=== PATIENT | male | born 1955 | race Caucasian/White ===

== ENCOUNTER 2018-05-14 05:39 | Observation (INO) | payer BC ==
--- NOTE | 2018-05-13 16:17 | GHP ---
DATE OF ADMISSION: 05/14/2018 ADMISSION DIAGNOSIS: BPH with urinary obstruction. This is a 62-year-old gentleman who had BPH in the past treated with GreenLight laser photovaporizati on. After assessment, it is noted that he had BPH regrowth, and we recommend he undergo a TURP. He is admitted for the above procedure. He has also had hypogonadism with a prolactinoma and been refer red to Endocrinology for evaluation and treatment of that. At the present time, he is admitted for t he TURP. Indication, complications, and expectations discussed. PAST SURGERY: He has had photovaporization of the prostate, knee surgery, vasectomy, and vasovasosto my. MEDICATIONS: Aspirin, diltiazem, statin drug, Zyrtec. ALLERGIES: None. PHYSICAL EXAMINATION: VITAL SIGNS: Stable. CHEST: Clear. HEART: Regular rate and rhythm. ABDOM EN: Normal. No organomegaly, rebound, or guarding. LOWER EXTREMITIES: Normal. LAB FINDINGS: He has had a PSA value in June 2017. It was 1.8. A testosterone in November of 2017 of 176. He has had significant nocturia with hesitancy and obstruction. He has also had sleep apnea that has been addressed in the past. ASSESSMENT AND PLAN: At the present time, he is admitted for a transurethral resection of the prosta te. Indication, complications, and risks discussed. Copy requested to: Dr. Todd Dalton /[id number]/MODL
[2018-05-14] MEDS ORDERED: ceFAZolin 2 GM/DEXTROSE 100 ML IV ONE (06:00)
[2018-05-14] MEDS ORDERED: LR 1,000 ML IV ONE (06:00)
[2018-05-14] MEDS ORDERED: LIDOCAINE 2% JELLY 20 ML (UROJECT) ONE (06:55)
--- NOTE | 2018-05-14 07:03 | PDHPUP ---
History & Physical Update H&P update statement: This history and physical update is based on an assessment of the patient which was completed after admission or registration (within 24 hours), but prior to the surgery/procedure. H&P update: H&P reviewed & patient examined, no change in patient's condition since H&P completed
[2018-05-14] MEDS ORDERED: MIDAZOLAM 2 MG/2 ML VIAL IVP ONE (07:10)
--- NOTE | 2018-05-14 07:13 | PDANEPAE ---
ANE History of Present Illness TURP ANE Past Medical History - Cardiovascular History Hx Hypertension: No Hx Arrhythmias: No Hx Chest Pain: No Hx Coronary Artery / Peripheral Vascular Disease: No Hx CHF / Valvular Disease: No Hx Palpitations: No Cardiovascular History Comment: pre-htn - Pulmonary History Hx COPD: No Hx Asthma/Reactive Airway Disease: No Hx Recent Upper Respiratory Infection: No Hx Oxygen in Use at Home: No Hx Sleep Apnea: Yes Sleep Apnea Screening Result - Last Documented: Positive Pulmonary History Comment: SEASONAL HAY FEVER - Neurologic History Hx Cerebrovascular Accident: No Hx Seizures: No Hx Dementia: No - Endocrine History Hx Diabetes: No - Renal History Hx Renal Disorders: No Renal History Comment: PROSTATE - Liver History Hx Hepatic Disorders: No - Neurological & Psychiatric Hx Hx Neurological and Psychiatric Disorders: No - Cancer History Hx Cancer: No - Congenital Disorder History Hx Congenital Disorders: No - GI History Hx Gastrointestinal Disorders: No - Other Health History Other Health History: KERATOSIS - Chronic Pain History Chronic Pain: No - Surgical History Prior Surgeries: 2013 PHOTOVAPORIZATION PROSTATE. ACL REPAIR L KNEE ANE Review of Systems Review of Systems: - Exercise capacity METS (RN): 4 METS ANE Patient History - Allergies Allergies/Adverse Reactions: No Known Allergies Allergy (Verified 04/22/18 16:00) - Home Medications Home Medications: Aspirin EC [Aspirin EC 81 mg (*)] 81 mg PO EVERY OTHER DAY 04/22/18 [Last Taken 1 Week Ago ~05/07/18] Cetirizine [ZyrTEC 10 mg (*)] 10 mg PO DAILY 04/22/18 [Last Taken 05/14/18 04:00 ] Cholecalciferol Vit D3 [Vitamin D3 (*)] 2,000 units PO HS 04/22/18 [Last Taken 1 Week Ago ~05/07/18] Diltiazem Xr [Dilacor Xr 180 MG (RX)] 180 mg PO HS 04/22/18 [Last Taken 23:00] Losartan Potassium [Cozaar 50 mg (*)] 100 mg PO DAILY 04/22/18 [Last Taken 05/13 23:00] Ibuprofen [Motrin (*)] 600 mg PO 05/14/18 [Last Taken 05/09/18] - NPO status NPO Status: no food or drink >8 hours NPO Since - Liquids (Date): 05/14/18 NPO Since - Liquids (Time): 04:00 NPO Since - Solids (Date): 05/13/18 NPO Since - Solids (Time): 22:00 - Smoking Hx Smoking Status: Never smoked - Family Anes Hx Family Hx Anesthesia Complications: none ANE Labs/Vital Signs - Vital Signs Blood Pressure: 137/88 Heart Rate: 68 Respiratory Rate: 14 O2 Sat (%): 91 Height: 182.88 cm Weight: 99.79 kg ANE Physical Exam - Airway Neck exam: decreased ROM Mallampati Score: Class 2 - Pulmonary Pulmonary: no respiratory distress, no rales or rhonchi - Cardiovascular Cardiovascular: regular rate and rhythym, no murmur, rub, or gallop - ASA Status ASA Status: II ANE Anesthesia Plan Anesthesia Plan: general endotracheal anesthesia
[2018-05-14] MEDS ORDERED: MIDAZOLAM 2 MG/2 ML VIAL ONE (07:14)
[2018-05-14] MEDS ORDERED: fentaNYL 250 MCG/5 ML INJ ONE (07:16)
[2018-05-14] MEDS ORDERED: PROPOFOL 200 MG/20 ML VIAL ONE (07:16)
[2018-05-14] MEDS ORDERED: PROPOFOL/EMULSION 500 MG/50 ML BOTTLE IV ONE (07:16)
[2018-05-14] MEDS ORDERED: DEXAMETHASONE 4 MG/ML VIAL ONE (07:25)
[2018-05-14] MEDS ORDERED: ONDANSETRON 4 MG/2 ML VIAL ONE (07:26)
[2018-05-14] MEDS ORDERED: ACETAMINOPHEN 325 MG TAB PO PRN (08:39)
[2018-05-14] MEDS ORDERED: ONDANSETRON DISINTEGRATING 4 MG TAB PO PRN (08:39)
[2018-05-14] MEDS ORDERED: ONDANSETRON 4 MG/2 ML VIAL IVP PRN ×2 (08:39→08:47)
[2018-05-14] MEDS ORDERED: OPIUM/BELLADONNA ALKALO SUPP PR PRN (08:39)
[2018-05-14] MEDS ORDERED: ZOLPIDEM TARTRATE 5 MG TAB PO PRN (08:39)
[2018-05-14] MEDS ORDERED: OXYCODONE/APAP 5/325 TAB PO PRN (08:39)
--- NOTE | 2018-05-14 08:39 | POSTOPPROG ---
Post Op Note Date of Operation: 05/14/18 (dictated) Surgeon: Ryan Cabrera Anesthesiologist: Manjeet Anesthesia: LMA Pre-op Diagnosis: bph Procedure: turp Inf/Abcess present in the surg proc area at time of surgery?: No EBL: Minimal Drains: Other (catheter) Specimen(s): sent
[2018-05-14] MEDS ORDERED: IBUPROFEN 600 MG TAB PO PRN (08:41)
[2018-05-14] MEDS ORDERED: D5W 1/2 NS 1,000 ML IV SCH (08:45)
[2018-05-14] MEDS ORDERED: ACETAMINOPHEN 500 MG TAB PO PRN (08:47)
[2018-05-14] MEDS ORDERED: HYDROCODONE/APAP 5/325 TAB PO PRN (08:47)
[2018-05-14] MEDS ORDERED: fentaNYL 100 MCG/2 ML INJ IVP PRN (08:47)
[2018-05-14] MEDS ORDERED: ALBUTEROL 3 ML DEYVIAL IH PRN (08:47)
[2018-05-14] MEDS ORDERED: NALOXONE HCL 0.4 MG/ML INJ IVP PRN (08:47)
[2018-05-14] MEDS ORDERED: HYDROmorphONE/DILAUDID 2 MG/ML INJ IVP PRN (08:47)
[2018-05-14] MEDS ORDERED: oxyCODONE IR 5 MG TAB PO PRN (08:47)
--- NOTE | 2018-05-14 08:57 | GOP ---
DATE OF OPERATION: 05/14/2018 SURGEON: Ryan Cabrera MD ANESTHESIA: General anesthesia. ANESTHESIOLOGIST: Dr. Burroughs. PREOPERATIVE DIAGNOSIS: BPH with urinary obstruction. POSTOPERATIVE DIAGNOSIS: BPH with urinary obstruction. PROCEDURE PERFORMED: Transurethral resection of the prostate. FINDINGS: DESCRIPTION OF PROCEDURE: Preoperatively discussed the indications, complications associated with maria teresa is. Also discussed was related to his prolactinoma, which he has had diagnosed. We had discussed maria teresa is with Dr. Abel Carrera from Neurosurgery who would recommend he have Endocrinology consult prior to a ny potential surgical consult and Endocrinology consult is scheduled in the future for treatment of sylvia carias 1 cm prolactinoma. Related to the BPH, after undergoing general anesthesia and being prepped and draped in normal steril e fashion, appropriate time-out, his meatus was dilated to 26-Pakistani, and at that point, the resectos cope was passed into the bladder atraumatically. The bladder had no tumor stones, foreign bodies, or diverticula. The ureteral orifices were normal and he had regrowth of the left side of the prostate that was coming across and occluding the channels. At that point, the intravesical lobe in the left lateral lobe resected. Right lateral lobe resected. Apical part of the prostate was managed and th e verumontanum preserved. At the end of the procedure. After resecting all the regrowth adenoma and bladder being Ellik free of all chips and clots, visualization revealed no residual chips or clots, ureteral orifices preserved, and hemostasis provided with bipolar electrocautery. Uro-jet placed in the urethra , a 22 three-way catheter passed the bladder, 90 cc balloon inflated, traction placed, an d irrigated clear. He will be admitted for postoperative care and I will discuss the findings with sylvia carias . Pathology was sent for permanent sections. Copy requested to: Dr. Todd Dalton /[id number]/MODL
[2018-05-14] MEDS ORDERED: ASPIRIN EC 81 MG TAB PO SCH (09:00)
--- NOTE | 2018-05-14 10:27 | POSTANESTH ---
Post Anesthetic Evaluation Cardiovascular Status: Normal, Stable Respiratory Status: Normal, Stable Level of Consciousness/Mental Status: Can Participate in Eval Pain Control: Adequate, Prn Tx Ordered Nausea/Vomiting Control: Adequate, Prn Tx Ordered Complications Possibly Related to Anesthesia: None Noted
[2018-05-14] MEDS: CETIRIZINE 10 MG TAB PO SCH (12:25)
--- NOTE | 2018-05-14 13:17 | ASMTCMCOM ---
CM Note CM Note Notes: Patient s/p TURP. No anticipated needs at this time, CM available should needs arise. Plan: Likely to dc home no needs when medically cleared for discharge. Date Signed: 05/14/2018 01:16 PM Electronically Signed By:Barbara Blackmon RN
[2018-05-14] MEDS: LOSARTAN POTASSIUM 50 MG TAB PO SCH (14:59)
[2018-05-14] MEDS ORDERED: CHOLECALCIFEROL VIT D3 1,000 UNITS TAB PO SCH (21:00)
[2018-05-14] MEDS ORDERED: DILTIAZEM CD 180 MG CAP PO SCH (21:00)
--- NOTE | 2018-05-15 07:51 | SOAPPROG ---
SOAP Progress Note Assessment/Plan: Assessment: BPH with obstruction/lower urinary tract symptoms Acute POD 1 plan for daniels removal and DC Plan: DC daniels and DC home 05/15/18 08:47 Subjective: no complaints Objective: Vital Signs Temp Pulse Resp BP Pulse Ox 36.6 C 72 16 145/82 H 94 05/15/18 07:38 05/15/18 07:38 05/15/18 07:38 05/15/18 07:38 05/15/18 07:38 05/14/18 05/15/18 05/16/18 05:59 05:59 05:59 Intake Total 4150 Output Total 955 2100 Balance 3195 -2100 Physical Exam - Physical Exam General Appearance: alert Respiratory: No respiratory distress Cardiac/Chest: regular rate, rhythm Back: No CVA tenderness Neuro/Psych: alert, oriented x 3 ICD10 Worksheet Patient Problems: Problems Problem Status Onset BPH with obstruction/lower urinary tract symptoms Acute - ICD10 Problem Qualifiers (1) BPH with obstruction/lower urinary tract symptoms
[2018-05-15] MEDS: CETIRIZINE 10 MG TAB PO SCH (09:22)
[2018-05-15] MEDS: LOSARTAN POTASSIUM 50 MG TAB PO SCH (09:23)
--- NOTE | 2018-05-15 09:34 | ASDISCHSUM ---
Discharge Information Plan Status:Home with No Needs Medically Cleared to Leave:05/14/2018 Discharge Date:05/14/2018 CM D/C Disposition:Home, Routine, Self-Care ADT D/C Disposition:Home, Routine, Self-Care Projected Discharge Date:05/14/2018 Transportation at D/C: Discharge Delay Reason: Follow-Up Date:05/14/2018 Discharge Slot: Final Diagnosis: Placement Information Patient Contact Information Contact Name:MELIDA Relationship: Address:[address] City:[place] Alternate Phone: [facility]/Zip Code:[place] [address] Email: Financial Information Financial Class:BCOP Primary Plan Desc:PATRICIA OLIVIA Primary Plan Number:[id number] Secondary Plan Desc: Secondary Plan Number: Assessment Information [facility] CM Progress Note CM Note CM Note Notes: Patient s/p TURP. No anticipated needs at this time, CM available should needs arise. Plan: Likely to dc home no needs when medically cleared for discharge. Date Signed: 05/14/2018 01:16 PM Electronically Signed By:Barbara Blackmon RN Intervention Information
--- NOTE | 2018-05-15 09:35 | ASMTLACE ---
LACE Length of stay for Answers: 1 day current admission Comorbidities - select Answers: Other Notes: BPH all that apply Score: 2 Date Signed: 05/15/2018 09:34 AM Electronically Signed By:Barbara Blackmon RN
--- NOTE | 2018-05-15 09:37 | ASMTDCNOTE ---
Case Management Discharge Discharge Order Complete? Answers: Yes Patient to Obtain Answers: Independently Medications Transportation Arranged Answers: Family/Friends Family Notified Answers: Yes Discharge Comments Notes: Medically cleared for discharge to home. No needs at this time. Date Signed: 05/15/2018 09:36 AM Electronically Signed By:Barbara Blackmon RN
[2018-05-15 13:06] VITALS: BP 124/84
== END 2018-05-15 13:15 | disposition home or self-care (01) ==
LOC: F3N 05:39 → F1N 09:46
PROVIDERS: ADMIT Specialist; ATTEND Specialist
PROC: 0VB08ZZ Excision of Prostate, Via Natural or Artificial Opening Endoscopic (ICD-10-PCS; principal; 2018-05-14 07:15)
DX: N40.1 Benign prostatic hyperplasia with lower urinary tract symptoms (principal); N13.8 Other obstructive and reflux uropathy; R39.11 Hesitancy of micturition; R35.1 Nocturia; G47.30 Sleep apnea, unspecified
CPT/HCPCS: 52601; G0378; J0690; J1100; J2250; J2405; J2704; J3010